=== PATIENT | female | born 1975 | race American Indian/Alaskan Native ===

== ENCOUNTER 2017-03-27 15:06 | Emergency (ER) | payer MEDICAID ==
[2017-03-27 17:32] VITALS: BP 135/75
--- NOTE | 2017-03-27 17:32 | EDM.PDOC ---
ED HPI GENERAL MEDICAL PROBLEM - General Chief Complaint: Lower Extremity Injury/Pain Stated Complaint: FELL AND HURT KNEE,[id number] Time Seen by Provider: 03/27/17 17:30 Source of Information: Reports: Patient History Limitations: Reports: No Limitations - History of Present Illness INITIAL COMMENTS - FREE TEXT/NARRATIVE: 42 yo [place] Female c/o falling onto Right Knee yesterday with friend Onset: Today Onset Date: 03/26/17 Onset Time: 13:00 Duration: Day(s): Location: Reports: Lower Extremity, Right Quality: Reports: Ache Severity: Moderate Improves with: Reports: Rest Worsens with: Reports: Movement Context: Reports: Trauma Associated Symptoms: Reports: No Other Symptoms Right Knee Pain Score (Numeric/FACES): 8 - Related Data Allergies Allergy/AdvReac Type Severity Reaction Status Date / Time No Known Allergies Allergy Verified 03/27/17 17:31 Home Meds: Home Meds . [No Known Home Meds] 10/22/15 [History] Past Medical History - Past Health History Medical/Surgical History: Denies Medical/Surgical History Genitourinary History: Reports: UTI, Recurrent Social & Family History - Family History Cardiac: Reports: CAD, Heart Failure, High Cholesterol, Hypertension, CT Respiratory: Reports: Asthma, COPD GI: Reports: Cholelithiasis Endocrine/Metabolic: Reports: Diabetes, type II, Obesity/MBI 30+ - Tobacco Use Smoking Status *Q: Current Every Day Smoker Years of Tobacco use: 24 Packs/Tins Daily: 1 Used Tobacco, but Quit: No Second Hand Smoke Exposure: Yes - Caffeine Use Caffeine Use: Reports: Coffee, Soda - Alcohol Use Days Per Week of Alcohol Use: 0 - Recreational Drug Use Recreational Drug Use: No Drug Use in Last 12 Months: Yes Recreational Drug Type: Reports: Marijuana/Hashish Recreational Drug Use Frequency: Not Used In Over 1 Month - Living Situation & Occupation Living situation: Reports: with Family Review of Systems - Review of Systems Review Of Systems: See Below Constitutional: Reports: No Symptoms Eyes: Reports: No Symptoms Ears: Reports: No Symptoms Nose: Reports: No Symptoms Mouth/Throat: Reports: No Symptoms Respiratory: Reports: No Symptoms Cardiovascular: Reports: No Symptoms GI/Abdominal: Reports: No Symptoms Genitourinary: Reports: No Symptoms Musculoskeletal: Reports: Joint Pain (right knee) Neurological: Reports: No Symptoms Psychiatric: Reports: No Symptoms ED EXAM, GENERAL - Physical Exam Exam: See Below Exam Limited By: No Limitations General Appearance: Alert, WD/WN, No Apparent Distress Eye Exam: Bilateral Eye: EOMI Respiratory/Chest: No Respiratory Distress Cardiovascular: Normal Peripheral Pulses Peripheral Pulses: 2+: Popliteal (L), Popliteal (R) Extremities: Limited Range of Motion (right knee w/o swelling and no discoloration) Neurological: Alert, Oriented, CN II-XII Intact, Normal Cognition Psychiatric: Normal Affect, Normal Mood Skin Exam: Warm, Dry, Intact Lymphatic: No Adenopathy Course - Vital Signs Last Recorded V/S: Last Vital Signs Temp 36.6 C 03/27/17 17:28 Pulse 63 03/27/17 17:28 Resp 16 03/27/17 17:28 BP 135/75 03/27/17 17:28 Pulse Ox 99 03/27/17 17:28 - Orders/Labs/Meds Orders: Active Orders 24 hr Category Date Time Status Knee 1V or 2V Rt [CR] Urgent Exams 03/27/17 16:06 Taken Departure - Departure Time of Disposition: 18:03 Disposition: Home, Self-Care 01 Condition: Good Clinical Impression: Contusion of knee, right Qualifiers: Encounter type: initial encounter Qualified Code(s): S80.01XA - Contusion of right knee, initial encounter - Discharge Information Forms: ED Department Discharge Additional Instructions: Rest Elevate and Apply Ice Pack TID X 15mins. Take the IBUPROFEN 800mg TID w/ food for the pain and inflammation #30 Use the crutches as advised F/U w/ PCP - My Orders Last 24 Hours: My Active Orders 03/27/17 16:06 Knee 1V or 2V Rt [CR] Urgent - Assessment/Plan Last 24 Hours: My Active Orders 03/27/17 16:06 Knee 1V or 2V Rt [CR] Urgent
[2017-03-27] MEDS ORDERED: Ibuprofen 800 MG Tab PO ONE (18:01)
== END 2017-03-27 18:19 | disposition home or self-care (01) ==
LOC: DL.ED 15:06
DX: S80.01XA Contusion of right knee, initial encounter (principal); Z87.440 Personal history of urinary (tract) infections; F17.210 Nicotine dependence, cigarettes, uncomplicated; W19.XXXA Unspecified fall, initial encounter
CPT/HCPCS: 73560; 99283; A9270

== ENCOUNTER 2017-08-10 14:21 | Emergency (ER) | payer MEDICAID ==
[2017-08-10] MEDS ORDERED: Sodium Chloride 0.9% 10 ML Syringe FLUSH PRN (14:52)
[2017-08-10 15:16] LABS: ANION GAP 12.3; CHLORIDE,CL 103 mmol/L (101-111); SODIUM,NA 137 mmol/L (135-145)
[2017-08-10] MEDS ORDERED: Diltiazem 25 MG/5 ML SDV IVPUSH ONE (15:17)
[2017-08-10] MEDS ORDERED: LORazepam 2 MG/ML Syringe IVPUSH ONE (15:18)
--- NOTE | 2017-08-10 15:42 | EDM.PDOC ---
ED HPI GENERAL MEDICAL PROBLEM - General Chief Complaint: Cardiovascular Problem Stated Complaint: FROM CLINIC Time Seen by Provider: 08/10/17 14:40 Source of Information: Reports: Patient, RN, RN Notes Reviewed History Limitations: Reports: No Limitations - History of Present Illness INITIAL COMMENTS - FREE TEXT/NARRATIVE: Pt presents to the ER from [facility], sent by Dr. Figueroa. Pt was being seen for c/o non-productive cough, chest pain, and body aches. She states she and her kids have not been feeling well and wanted to be tested for influenza A. She was found to have a tachy irregular rhythm. When an EKG was done she was found to be in new onset Atrial fib/RVR at a rate of 150's. Onset: Gradual Right Upper Chest Pain Score (Numeric/FACES): 6 - Related Data Allergies Allergy/AdvReac Type Severity Reaction Status Date / Time No Known Allergies Allergy Verified 03/27/17 17:31 Home Meds: Home Meds . 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 (See Below) Other OB/BYN History: Menses ended 4 days ago Musculoskeletal History: Reports: None Neurological History: Reports: None Psychiatric History: Reports: None Endocrine/Metabolic History: Reports: None Hematologic History: Reports: None Immunologic History: Reports: None Oncologic (Cancer) History: Reports: None Dermatologic History: Reports: None - Infectious Disease History Infectious Disease History: Reports: Chicken Pox - Past Surgical History Head Surgeries/Procedures: Reports: None Social & Family History - Family History Cardiac: Reports: CAD, Heart Failure, High Cholesterol, Hypertension, [place] Respiratory: Reports: Asthma, COPD GI: Reports: Cholelithiasis Endocrine/Metabolic: Reports: Diabetes, type II, Obesity/MBI 30+ - Tobacco Use Smoking Status *Q: Current Every Day Smoker Years of Tobacco use: 25 Packs/Tins Daily: 0.7 Used Tobacco, but Quit: No Second Hand Smoke Exposure: Yes - Caffeine Use Caffeine Use: Reports: Coffee - Alcohol Use Days Per Week of Alcohol Use: 0 - Recreational Drug Use Recreational Drug Use: Yes Drug Use in Last 12 Months: Yes Recreational Drug Type: Reports: Marijuana/Hashish Recreational Drug Use Frequency: Not Used In Over 1 Month - Living Situation & Occupation Living situation: Reports: with Family ED ROS GENERAL - Review of Systems Review Of Systems: ROS reveals no pertinent complaints other than HPI. ED EXAM, GENERAL - Physical Exam Exam: See Below Exam Limited By: No Limitations General Appearance: Alert, WD/WN, Anxious (PT anxious and crying) Eye Exam: Bilateral Eye: EOMI, Normal Inspection, PERRL Ears: Normal External Exam, Normal Canal, Hearing Grossly Normal, Normal TMs Nose: Normal Inspection, Normal Mucosa, No Blood Throat/Mouth: Normal Inspection, Normal Lips, Normal Teeth, Normal Gums, Normal Oropharynx, Normal Voice, No Airway Compromise Head: Atraumatic, Normocephalic Neck: Normal Inspection, Supple, Non-Tender, Full Range of Motion Respiratory/Chest: No Respiratory Distress, Lungs Clear, Normal Breath Sounds, No Accessory Muscle Use, Chest Non-Tender Cardiovascular: Normal Peripheral Pulses, No Edema, Tachycardia, Irregularly Irregular Peripheral Pulses: 1+: Radial (L), Radial (R) GI/Abdominal: Normal Bowel Sounds, Soft, Non-Tender, No Organomegaly, No Distention, No Abnormal Bruit, No Mass (Female) Exam: Deferred Rectal (Female) Exam: Deferred Back Exam: Normal Inspection, Full Range of Motion, NT Extremities: Normal Inspection, Normal Range of Motion, Non-Tender, Normal Capillary Refill, No Pedal Edema Neurological: Alert, Oriented, CN II-XII Intact, Normal Cognition, Normal Gait, Normal Reflexes, No Motor/Sensory Deficits Psychiatric: Anxious, Tearful Skin Exam: Warm, Dry, Intact, Normal Color, No Rash Lymphatic: No Adenopathy EKG INTERPRETATION EKG Date: 08/10/17 Time: 14:47 Rate (Beats/Min): 140 EKG Interpretation Comments: Atrial fibrillation, V-rate 99-172. Nonspecific repolarization abnormality, diffuse leads. Course - Vital Signs Last Recorded V/S: Last Vital Signs Temp 98.4 F 08/10/17 14:26 Pulse 116 H 08/10/17 16:35 Resp 22 H 08/10/17 14:26 BP 132/97 H 08/10/17 16:35 Pulse Ox 96 08/10/17 14:26 - Orders/Labs/Meds Labs: Laboratory Tests 08/10/17 08/10/17 08/10/17 Range/Units 14:40 14:40 14:40 WBC 12.6 H (5.0-10.0) 10^3/uL RBC 4.68 (4.2-5.4) 10^6/uL Hgb 14.0 (12.0-16.0) g/dL Hct 41.5 (37.0-47.0) % MCV 88.7 (80-100) fL MCH 29.9 (27.0-34.0) pg MCHC 33.7 (33.0-35.0) g/dL Plt Count 309 (150-450) 10^3/uL Neut % (Auto) 76.1 H (42.2-75.2) % Lymph % (Auto) 16.4 L (20.5-50.1) % Sebastian % (Auto) 6.7 (2-8) % Eos % (Auto) 0.6 L (1.0-3.0) % Baso % (Auto) 0.2 (0.0-1.0) % PT 9.1 (9.0-12.0) SEC INR 0.9 (0.9-1.2) Sodium 137 (135-145) mmol/L Potassium 3.3 L (3.6-5.0) mmol/L Chloride 103 (101-111) mmol/L Carbon Dioxide 25.0 (21.0-31.0) mmol/L Anion Gap 12.3 BUN 13 (7-18) mg/dL Creatinine 0.6 (0.6-1.3) mg/dL Est Cr Clr Drug Dosing 119.99 mL/min Estimated GFR (MDRD) > 60 BUN/Creatinine Ratio 21.66 Glucose 122 H (74-105) mg/dL Calcium 9.1 (8.4-10.2) mg/dl Total Bilirubin 1.7 H (0.2-1.0) mg/dL AST 28 (10-42) IU/L ALT 19 (10-60) IU/L Alkaline Phosphatase 113 (42-121) IU/L Troponin I < 0.02 (0.00-0.02) ng/ml Total Protein 7.2 (6.7-8.2) g/dl Albumin 4.3 (3.2-5.5) g/dl Globulin 2.9 Albumin/Globulin Ratio 1.48 Urine Color (YELLOW) Urine Appearance (CLEAR) Urine pH (5.0-9.0) Ur Specific Hudson (1.005-1.030) Urine Protein (NEGATIVE) Urine Glucose (UA) (NEGATIVE) Urine Ketones (NEGATIVE) Urine Occult Blood (NEGATIVE) Urine Nitrite (NEGATIVE) Urine Bilirubin (NEGATIVE) Urine Urobilinogen (0.2-1.0) mg/dL Ur Leukocyte Esterase (NEGATIVE) Urine RBC /HPF Urine WBC (0-5/HPF) /HPF Ur Epithelial Cells /HPF Urine Bacteria (0-FEW/HPF) /HPF Urine Mucus /LPF Urine HCG, Qual Urine Opiates Screen (NEGATIVE) Ur Oxycodone Screen (NEGATIVE) Urine Methadone Screen (NEGATIVE) Ur Barbiturates Screen (NEGATIVE) U Tricyclic Antidepress (NEGATIVE) Ur Phencyclidine Scrn (NEGATIVE) Ur Amphetamine Screen (NEGATIVE) U Methamphetamines Scrn (NEGATIVE) Urine MDMA Screen (NEGATIVE) U Benzodiazepines Scrn (NEGATIVE) Urine Cocaine Screen (NEGATIVE) U Marijuana (THC) Screen (NEGATIVE) Ethyl Alcohol < 5 mg/dL 08/10/17 08/10/17 08/10/17 Range/Units 15:50 15:50 15:50 WBC (5.0-10.0) 10^3/uL RBC (4.2-5.4) 10^6/uL Hgb (12.0-16.0) g/dL Hct (37.0-47.0) % MCV (80-100) fL MCH (27.0-34.0) pg MCHC (33.0-35.0) g/dL Plt Count (150-450) 10^3/uL Neut % (Auto) (42.2-75.2) % Lymph % (Auto) (20.5-50.1) % Sebastian % (Auto) (2-8) % Eos % (Auto) (1.0-3.0) % Baso % (Auto) (0.0-1.0) % PT (9.0-12.0) SEC INR (0.9-1.2) Sodium (135-145) mmol/L Potassium (3.6-5.0) mmol/L Chloride (101-111) mmol/L Carbon Dioxide (21.0-31.0) mmol/L Anion Gap BUN (7-18) mg/dL Creatinine (0.6-1.3) mg/dL Est Cr Clr Drug Dosing mL/min Estimated GFR (MDRD) BUN/Creatinine Ratio Glucose (74-105) mg/dL Calcium (8.4-10.2) mg/dl Total Bilirubin (0.2-1.0) mg/dL AST (10-42) IU/L ALT (10-60) IU/L Alkaline Phosphatase (42-121) IU/L Troponin I (0.00-0.02) ng/ml Total Protein (6.7-8.2) g/dl Albumin (3.2-5.5) g/dl Globulin Albumin/Globulin Ratio Urine Color Light yellow (YELLOW) Urine Appearance Slightly cloudy (CLEAR) Urine pH 7.5 (5.0-9.0) Ur Specific Hudson 1.015 (1.005-1.030) Urine Protein Negative (NEGATIVE) Urine Glucose (UA) Negative (NEGATIVE) Urine Ketones Negative (NEGATIVE) Urine Occult Blood Moderate H (NEGATIVE) Urine Nitrite Negative (NEGATIVE) Urine Bilirubin Negative (NEGATIVE) Urine Urobilinogen 0.2 (0.2-1.0) mg/dL Ur Leukocyte Esterase Negative (NEGATIVE) Urine RBC 10-20 H /HPF Urine WBC 0-5 (0-5/HPF) /HPF Ur Epithelial Cells Few /HPF Urine Bacteria Rare (0-FEW/HPF) /HPF Urine Mucus Few H /LPF Urine HCG, Qual Negative Urine Opiates Screen Negative (NEGATIVE) Ur Oxycodone Screen Negative (NEGATIVE) Urine Methadone Screen Negative (NEGATIVE) Ur Barbiturates Screen Negative (NEGATIVE) U Tricyclic Antidepress Negative (NEGATIVE) Ur Phencyclidine Scrn Negative (NEGATIVE) Ur Amphetamine Screen Negative (NEGATIVE) U Methamphetamines Scrn Negative (NEGATIVE) Urine MDMA Screen Negative (NEGATIVE) U Benzodiazepines Scrn Negative (NEGATIVE) Urine Cocaine Screen Negative (NEGATIVE) U Marijuana (THC) Screen Positive H (NEGATIVE) Ethyl Alcohol mg/dL Meds: Medications Discontinued Medications Generic Name Dose Route Start Last Admin Trade Name Freq PRN Reason Stop Dose Admin Diltiazem HCl 20 mg 08/10/17 15:17 08/10/17 15:31 Diltiazem IVPUSH 08/10/17 15:18 20 mg ONETIME ONE Administration Diltiazem HCl 100 mg/ Sodium 100 mls @ 5 mls/hr 08/10/17 16:30 08/10/17 16:35 Chloride IV 5 mg/hr TITRATE MANOJ 5 mls/hr Protocol Administration 5 MG/HR Lorazepam 1 mg 08/10/17 15:18 08/10/17 15:31 Ativan IVPUSH 08/10/17 15:19 1 mg ONETIME ONE Administration Sodium Chloride 10 ml 08/10/17 14:52 08/10/17 15:42 Saline Flush FLUSH 10 ml ASDIRECTED PRN Administration Keep Vein Open - Radiology Interpretation Free Text/Narrative:: Chest xray done at [facility]. No acute findings See rad report from [facility] in the chart Departure - Departure Time of Disposition: 16:44 Disposition: DC/Tfer to Acute Hospital 02 Reason for Transfer *Q: Primary PCI Indicated Condition: Fair Clinical Impression: Atrial fibrillation, new onset, Atrial fibrillation with RVR Referrals: Alysia Mora MD [Primary Care Provider] - Forms: ED Department Discharge, Interfacility Transfer GAYLEALA
[2017-08-10] MEDS ORDERED: Diltiazem 100 MG in Sodium Chloride 0.9% 100 ML IV SCH (16:30)
[2017-08-10 16:38] VITALS: BP 132/97
--- NOTE | 2017-08-24 07:28 | EKG ---
08/10/2017- DARIO BAIG CHEL - EKG done on a 42-year-old female showing atrial fibrillation, heart rate of 140 beats per minute. T-wave changes noted in inferior leads. [facility] /[id number] MTDD
== END 2017-08-10 17:18 ==
LOC: DL.ED 14:21
DX: I48.91 Unspecified atrial fibrillation (principal); F17.210 Nicotine dependence, cigarettes, uncomplicated
CPT/HCPCS: 36415; 80053; 80305; 81001; 81025; 84484; 85025; 85610; 93005; 96365; 96375; 96376; 99285; G0480; J2060; J3490; J7050

== ENCOUNTER 2017-10-13 18:59 | Emergency (ER) | payer MEDICAID ==
[2017-10-13] MEDS ORDERED: MVI, Adult with Vitamin K 10 ML, Folic Acid 1 MG, Thiamine 100 MG in Lactated Ringers 1... IV ONE ×4 (19:31)
[2017-10-13] MEDS ORDERED: Aspirin 81 MG Tab.Chew PO ONE (19:38)
--- NOTE | 2017-10-13 19:38 | EDM.PDOC ---
ED HPI GENERAL MEDICAL PROBLEM - General Chief Complaint: Chest Pain Stated Complaint: [id number] HEART BEATING TOÑA HAD ATRILFIB BEFORE Time Seen by Provider: 10/13/17 19:15 Source of Information: Reports: Patient, Old Records, RN, RN Notes Reviewed History Limitations: Reports: No Limitations - History of Present Illness INITIAL COMMENTS - FREE TEXT/NARRATIVE: Binta is a 42 yo F who presents to the ED due to palpitations for the last couple hours. She reports that she has been drinking for the last 2 days. Woke up this am and noticed that she "was having funny heart beats" She admits to drinking vodka and beer. Unsure how much she had drank but relates "was quite a bit" She reports that she drank a couple hours ago as she felt that she was "having a bad hangover" and thought that it would help her palpitations. She reports that she has been nauseated. No emesis. She reports that she was recently diagnosed with afib in July was started on Metoprolol, but was stopped in early August due to her "heart rate going to low" She was previously on aspirin 325mg but has missed the last 2 doses due to her drinking. Onset: Today Duration: Hour(s): (Patient reports sx started a couple hours unsure of the exact time. ) Location: Reports: Chest Quality: Reports: Pressure Severity: Mild Improves with: Reports: Rest Worsens with: Reports: Movement Associated Symptoms: Reports: Nausea/Vomiting, Weakness Treatments HEATING AND REFRIGERATION INSPECTOR: Reports: EKG, IV/IO, Other (see below) Other Treatments HEATING AND REFRIGERATION INSPECTOR: labs - Related Data Allergies Allergy/AdvReac Type Severity Reaction Status Date / Time No Known Allergies Allergy Verified 10/13/17 19:17 Home Meds: Home Meds Aspirin 325 mg PO DAILY 10/13/17 [History] Past Medical History - Past Health History Medical/Surgical History: Denies Medical/Surgical History HEENT History: Reports: None Cardiovascular History: Reports: Afib Respiratory History: Reports: None Gastrointestinal History: Reports: GERD Genitourinary History: Reports: UTI, Recurrent MISSION COMMANDER History: Reports: None Other OB/BYN History: \\ Musculoskeletal History: Reports: None Neurological History: Reports: None Psychiatric History: Reports: Anxiety, Depression, PTSD Endocrine/Metabolic History: Reports: None Hematologic History: Reports: None Immunologic History: Reports: None Oncologic (Cancer) History: Reports: None Dermatologic History: Reports: None - Infectious Disease History Infectious Disease History: Reports: Chicken Pox - Past Surgical History Head Surgeries/Procedures: Reports: None Social & Family History - Family History Family Medical History: Noncontributory Cardiac: Reports: CAD, Heart Failure, High Cholesterol, Hypertension, [place] Respiratory: Reports: Asthma, COPD GI: Reports: Cholelithiasis Endocrine/Metabolic: Reports: Diabetes, type II, Obesity/MBI 30+ - Tobacco Use Smoking Status *Q: Current Every Day Smoker Years of Tobacco use: 20 Packs/Tins Daily: 0.5 Used Tobacco, but Quit: No Second Hand Smoke Exposure: Yes - Caffeine Use Caffeine Use: Reports: Soda - Alcohol Use Days Per Week of Alcohol Use: 2 Number of Drinks Per Day: 6 Total Drinks Per Week: 12 - Recreational Drug Use Recreational Drug Use: Yes Drug Use in Last 12 Months: Yes Recreational Drug Type: Reports: Marijuana/Hashish Recreational Drug Use Frequency: Not Used In Over 1 Month - Living Situation & Occupation Living situation: Reports: with Family ED ROS GENERAL - Review of Systems Review Of Systems: ROS reveals no pertinent complaints other than HPI. ED EXAM, GENERAL - Physical Exam Exam: See Below Exam Limited By: No Limitations General Appearance: Alert, WD/WN, No Apparent Distress Eye Exam: Bilateral Eye: PERRL Ears: Normal External Exam, Normal Canal, Hearing Grossly Normal, Normal TMs Ear Exam: Bilateral Ear: Auricle Normal, Canal Normal, TM normal Nose: Normal Inspection, Normal Mucosa, No Blood Throat/Mouth: Normal Inspection, Normal Lips, Normal Teeth, Normal Gums, Normal Oropharynx, Normal Voice, No Airway Compromise Head: Atraumatic, Normocephalic Neck: Normal Inspection, Supple, Non-Tender, Full Range of Motion Respiratory/Chest: No Respiratory Distress, Lungs Clear, Normal Breath Sounds, No Accessory Muscle Use, Chest Non-Tender Cardiovascular: Normal Peripheral Pulses, Irregularly Irregular (Afib noted. ) GI/Abdominal: Normal Bowel Sounds, Soft, Non-Tender, No Organomegaly, No Distention, No Abnormal Bruit, No Mass (Female) Exam: Deferred Rectal (Female) Exam: Deferred Back Exam: Normal Inspection, Full Range of Motion, NT Extremities: Normal Inspection, Normal Range of Motion, Non-Tender, Normal Capillary Refill, No Pedal Edema Neurological: Alert, Oriented, CN II-XII Intact, Normal Cognition, Normal Gait, Normal Reflexes, No Motor/Sensory Deficits Psychiatric: Normal Affect, Normal Mood Skin Exam: Warm, Dry, Intact, Normal Color, No Rash Lymphatic: No Adenopathy EKG INTERPRETATION EKG Date: 10/13/17 Time: 19:17 Rhythm: A-Fib Rate (Beats/Min): 113 Comparison: No Change (Prior ekg showed Afib rate in the 150s) Course - Vital Signs Last Recorded V/S: Last Vital Signs Temp 97.8 F 10/13/17 19:07 Pulse 123 H 10/13/17 21:37 Resp 19 10/13/17 21:37 BP 130/64 10/13/17 21:37 Pulse Ox 99 10/13/17 21:37 - Orders/Labs/Meds Orders: Active Orders 24 hr Category Date Time Status EKG Documentation Completion [RC] URGENT Care 10/13/17 19:31 Active DRUG SCREEN URINE BIORAD [URCHEM] Stat Lab 10/13/17 20:25 Ordered HCG QUALITATIVE,URINE [URCHEM] Stat Lab 10/13/17 20:25 Ordered Potassium Chloride [KCl 10 MEQ in Water 100 ML] 10 meq Med 10/13/17 21:24 Active Premix Bag 1 bag IV ONETIME Medication Orders Potassium Chloride 10 meq/ (Premix) 100 mls @ 100 mls/hr IV ONETIME ONE Stop: 10/13/17 22:23 Last Admin: 10/13/17 21:32 Dose: 100 mls/hr Labs: Laboratory Tests 10/13/17 10/13/17 10/13/17 Range/Units 17:13 17:13 20:25 WBC 12.3 H (5.0-10.0) 10^3/uL RBC 4.50 (4.2-5.4) 10^6/uL Hgb 13.5 (12.0-16.0) g/dL Hct 39.1 (37.0-47.0) % MCV 86.9 (80-100) fL MCH 30.0 (27.0-34.0) pg MCHC 34.5 (33.0-35.0) g/dL Plt Count 273 (150-450) 10^3/uL Neut % (Auto) 64.2 (42.2-75.2) % Lymph % (Auto) 28.8 (20.5-50.1) % [place] % (Auto) 5.1 (2-8) % Eos % (Auto) 1.7 (1.0-3.0) % Baso % (Auto) 0.2 (0.0-1.0) % Sodium 136 (135-145) mmol/L Potassium 3.2 L (3.6-5.0) mmol/L Chloride 107 (101-111) mmol/L Carbon Dioxide 22.0 (21.0-31.0) mmol/L Anion Gap 10.2 BUN 11 (7-18) mg/dL Creatinine 0.5 L (0.6-1.3) mg/dL Est Cr Clr Drug Dosing 143.99 mL/min Estimated GFR (MDRD) > 60 BUN/Creatinine Ratio 22.00 Glucose 105 (74-105) mg/dL Calcium 8.5 (8.4-10.2) mg/dl Total Bilirubin 0.9 (0.2-1.0) mg/dL AST 25 (10-42) IU/L ALT 18 (10-60) IU/L Alkaline Phosphatase 97 (42-121) IU/L Troponin I < 0.02 (0.00-0.02) ng/ml Total Protein 7.5 (6.7-8.2) g/dl Albumin 4.3 (3.2-5.5) g/dl Globulin 3.2 Albumin/Globulin Ratio 1.34 Urine Color Yellow (YELLOW) Urine Appearance Clear (CLEAR) Urine pH 7.0 (5.0-9.0) Ur Specific [place] 1.010 (1.005-1.030) Urine Protein Negative (NEGATIVE) Urine Glucose (UA) Negative (NEGATIVE) Urine Ketones Negative (NEGATIVE) Urine Occult Blood Moderate H (NEGATIVE) Urine Nitrite Negative (NEGATIVE) Urine Bilirubin Negative (NEGATIVE) Urine Urobilinogen 0.2 (0.2-1.0) mg/dL Ur Leukocyte Esterase Negative (NEGATIVE) Urine RBC 0-5 /HPF Urine WBC 0-5 (0-5/HPF) /HPF Ur Epithelial Cells Moderate H /HPF Amorphous Sediment Few (0/HPF) /HPF Urine Bacteria Few (0-FEW/HPF) /HPF Urine HCG, Qual Urine Opiates Screen (NEGATIVE) Ur Oxycodone Screen (NEGATIVE) Urine Methadone Screen (NEGATIVE) Ur Barbiturates Screen (NEGATIVE) U Tricyclic Antidepress (NEGATIVE) Ur Phencyclidine Scrn (NEGATIVE) Ur Amphetamine Screen (NEGATIVE) U Methamphetamines Scrn (NEGATIVE) Urine MDMA Screen (NEGATIVE) U Benzodiazepines Scrn (NEGATIVE) Urine Cocaine Screen (NEGATIVE) U Marijuana (THC) Screen (NEGATIVE) Ethyl Alcohol < 5 mg/dL 10/13/17 10/13/17 Range/Units 20:25 20:25 WBC (5.0-10.0) 10^3/uL RBC (4.2-5.4) 10^6/uL Hgb (12.0-16.0) g/dL Hct (37.0-47.0) % MCV (80-100) fL MCH (27.0-34.0) pg MCHC (33.0-35.0) g/dL Plt Count (150-450) 10^3/uL Neut % (Auto) (42.2-75.2) % Lymph % (Auto) (20.5-50.1) % [place] % (Auto) (2-8) % Eos % (Auto) (1.0-3.0) % Baso % (Auto) (0.0-1.0) % Sodium (135-145) mmol/L Potassium (3.6-5.0) mmol/L Chloride (101-111) mmol/L Carbon Dioxide (21.0-31.0) mmol/L Anion Gap BUN (7-18) mg/dL Creatinine (0.6-1.3) mg/dL Est Cr Clr Drug Dosing mL/min Estimated GFR (MDRD) BUN/Creatinine Ratio Glucose (74-105) mg/dL Calcium (8.4-10.2) mg/dl Total Bilirubin (0.2-1.0) mg/dL AST (10-42) IU/L ALT (10-60) IU/L Alkaline Phosphatase (42-121) IU/L Troponin I (0.00-0.02) ng/ml Total Protein (6.7-8.2) g/dl Albumin (3.2-5.5) g/dl Globulin Albumin/Globulin Ratio Urine Color (YELLOW) Urine Appearance (CLEAR) Urine pH (5.0-9.0) Ur Specific [place] (1.005-1.030) Urine Protein (NEGATIVE) Urine Glucose (UA) (NEGATIVE) Urine Ketones (NEGATIVE) Urine Occult Blood (NEGATIVE) Urine Nitrite (NEGATIVE) Urine Bilirubin (NEGATIVE) Urine Urobilinogen (0.2-1.0) mg/dL Ur Leukocyte Esterase (NEGATIVE) Urine RBC /HPF Urine WBC (0-5/HPF) /HPF Ur Epithelial Cells /HPF Amorphous Sediment (0/HPF) /HPF Urine Bacteria (0-FEW/HPF) /HPF Urine HCG, Qual Negative Urine Opiates Screen Negative (NEGATIVE) Ur Oxycodone Screen Negative (NEGATIVE) Urine Methadone Screen Negative (NEGATIVE) Ur Barbiturates Screen Negative (NEGATIVE) U Tricyclic Antidepress Negative (NEGATIVE) Ur Phencyclidine Scrn Negative (NEGATIVE) Ur Amphetamine Screen Negative (NEGATIVE) U Methamphetamines Scrn Negative (NEGATIVE) Urine MDMA Screen Negative (NEGATIVE) U Benzodiazepines Scrn Negative (NEGATIVE) Urine Cocaine Screen Negative (NEGATIVE) U Marijuana (THC) Screen Positive H (NEGATIVE) Ethyl Alcohol mg/dL Meds: Medications Generic Name Dose Route Start Last Admin Trade Name Freq PRN Reason Stop Dose Admin Potassium Chloride 10 meq/ 100 mls @ 100 mls/hr 10/13/17 21:24 10/13/17 21:32 Premix IV 10/13/17 22:23 100 mls/hr ONETIME ONE Administration Discontinued Medications Generic Name Dose Route Start Last Admin Trade Name Freq PRN Reason Stop Dose Admin Aspirin 324 mg 10/13/17 19:38 10/13/17 20:27 Aspirin PO 10/13/17 19:39 324 mg ONETIME ONE Administration Multivitamins/Minerals 10 ml/ 1,011.2 mls @ 999 mls/hr 10/13/17 19:31 20:27 Folic Acid 1 mg/ Thiamine HCl IV 10/13/17 20:31 999 mls/hr 100 mg/ Lactated Ringer's ONETIME ONE Administration Metoprolol Tartrate 25 mg 10/13/17 21:26 10/13/17 21:35 Lopressor PO 10/13/17 21:27 25 mg ONETIME ONE Administration - Radiology Interpretation Free Text/Narrative:: Patient relates that she is feeling slightly better after banana bag. Heart ranging from low 90s to 130s. Departure - Departure Time of Disposition: 22:22 Disposition: Home, Self-Care 01 Condition: Good Clinical Impression: Atrial fibrillation Qualifiers: Atrial fibrillation type: paroxysmal Qualified Code(s): I48.0 - Paroxysmal atrial fibrillation Forms: ED Department Discharge Care Plan Goals: Follow-up with your primary care provider in the next couple days regarding your elevated heart rate. Please ask if your should be on any medications to control your heart rate. Push fluid. Avoid alcohol use Return to the clinic if you are experiencing shortness of breath, chest pain, or other concerns.
[2017-10-13 19:48] LABS: ANION GAP 10.2; CHLORIDE,CL 107 mmol/L (101-111); SODIUM,NA 136 mmol/L (135-145)
[2017-10-13] MEDS ORDERED: Potassium Chloride 10 MEQ in Premix Bag 1 BAG IV ONE (21:24)
[2017-10-13] MEDS ORDERED: Metoprolol Tartrate 25 MG Tab PO ONE (21:26)
[2017-10-13 22:32] VITALS: BP 121/66
--- NOTE | 2017-10-14 14:08 | EKG ---
10/13/2017- DARIO BAIG - FINDINGS: EKG, per my reading, shows atrial fibrillation with rapid ventricular rate around 110. MOD /[id number]
== END 2017-10-13 22:38 | disposition home or self-care (01) ==
LOC: DL.ED 18:59
DX: I48.0 Paroxysmal atrial fibrillation (principal); F17.210 Nicotine dependence, cigarettes, uncomplicated; Z79.82 Long term (current) use of aspirin
CPT/HCPCS: 36415; 80053; 80305; 81001; 81025; 84484; 85025; 93005; 96365; 96367; 99285; A9270; G0480; J3411; J3480; J7120; J3490

== ENCOUNTER 2019-11-16 00:38 | Emergency (ER) | payer MEDICAID ==
[2019-11-16 02:26] VITALS: BP 150/99; PULSE 72
[2019-11-16] MEDS ORDERED: Ondansetron 4 MG/2 ML SDV IVPUSH ONE (02:31)
[2019-11-16] MEDS ORDERED: Sodium Chloride 0.9% 1,000 ML IV ONE (02:31)
--- NOTE | 2019-11-16 02:36 | EDM.PDOC ---
ED HPI GENERAL MEDICAL PROBLEM - General Chief Complaint: Skin Complaint Stated Complaint: HURT KNEE, SICK Time Seen by Provider: 11/16/19 02:28 Source of Information: Reports: Patient History Limitations: Reports: No Limitations - History of Present Illness INITIAL COMMENTS - FREE TEXT/NARRATIVE: This 44 yo female patient reports to the ED with left lateral knee pain, redness and swelling that started on Thursday (11/12/19). The patient also reports she has been having bilateral side pain for the past week. The patient reports she has been very thirsty, but has not been able to eat due to some nausea. The patient reports she has tried some antibiotic cream on the leg one time. The patient has not attempted to be seen in the clinic for her current symptoms. The patient reports she has been drinking pedialyte, sprite and water , but continues to feel ill. Duration: Day(s): (5 days for the left knee pain), Week(s): (side pain ), Constant, Getting Worse Location: Reports: Lower Extremity, Left Quality: Reports: Ache, Sharp, Stabbing Severity: Severe Improves with: Reports: None Worsens with: Reports: None Context: Reports: Other Associated Symptoms: Reports: Nausea/Vomiting Treatments SUBGRADE TESTER: Reports: Acetaminophen Left Leg Pain Score (Numeric/FACES): 7 - Related Data Allergies Allergy/AdvReac Type Severity Reaction Status Date / Time No Known Allergies Allergy Verified 11/16/19 02:18 Home Meds: Home Meds . [Unable to Verify Home Med List] 11/16/19 [History] Past Medical History - Past Health History Medical/Surgical History: Denies Medical/Surgical History HEENT History: Reports: None Cardiovascular History: Reports: Afib Respiratory History: Reports: None Gastrointestinal History: Reports: GERD Genitourinary History: Reports: UTI, Recurrent CORRECTION OFFICER History: Reports: None Other CORRECTION OFFICER History: \ Musculoskeletal History: Reports: None Neurological History: Reports: None Psychiatric History: Reports: Anxiety, Depression, PTSD Endocrine/Metabolic History: Reports: None Hematologic History: Reports: None Immunologic History: Reports: None Oncologic (Cancer) History: Reports: None Dermatologic History: Reports: None - Infectious Disease History Infectious Disease History: Reports: Chicken Pox - Past Surgical History Head Surgeries/Procedures: Reports: None Social & Family History - Family History Family Medical History: Noncontributory Cardiac: Reports: CAD, Heart Failure, High Cholesterol, Hypertension, [place] Respiratory: Reports: Asthma, COPD GI: Reports: Cholelithiasis Endocrine/Metabolic: Reports: Diabetes, type II, Obesity/MBI 30+ - Tobacco Use Smoking Status *Q: Current Every Day Smoker Years of Tobacco use: 30 Packs/Tins Daily: 0.5 - Caffeine Use Caffeine Use: Reports: Coffee - Recreational Drug Use Recreational Drug Use: Yes Recreational Drug Type: Reports: Marijuana/Hashish - Living Situation & Occupation Living situation: Reports: with Family ED ROS GENERAL - Review of Systems Review Of Systems: Comprehensive ROS is negative, except as noted in HPI. ED EXAM, SKIN/RASH Exam: See Below Exam Limited By: No Limitations General Appearance: Alert, WD/WN, Moderate Distress Eye Exam: Bilateral Eye: EOMI, Normal Inspection, PERRL Ears: Normal External Exam, Normal Canal, Hearing Grossly Normal, Normal TMs Nose: Normal Inspection, Normal Mucosa, No Blood Throat/Mouth: Normal Inspection, Normal Lips, Normal Teeth, Normal Gums, Normal Oropharynx, Normal Voice, No Airway Compromise Head: Atraumatic, Normocephalic Neck: Normal Inspection, Supple, Non-Tender, Full Range of Motion Respiratory/Chest: No Respiratory Distress, Lungs Clear, Normal Breath Sounds, No Accessory Muscle Use, Chest Non-Tender Cardiovascular: Normal Peripheral Pulses, Regular Rate, Rhythm, No Edema, No Gallop, No JVD, No Murmur, No Rub GI/Abdominal: Normal Bowel Sounds, Soft, Non-Tender, No Organomegaly, No Distention, No Abnormal Bruit, No Mass (Female) Exam: Deferred Rectal (Female) Exam: Deferred Back Exam: Normal Inspection, Full Range of Motion, NT Extremities: Leg Pain (left lateral knee (erythema)) Neurological: Alert, Oriented, CN II-XII Intact, Normal Cognition, Normal Gait, Normal Reflexes, No Motor/Sensory Deficits Psychiatric: Normal Affect, Normal Mood Skin: Warm, Dry, Wound/Incision (left lateral knee) Location, Skin: Lower Extremity, Left Characteristics: Erythematous Associated features: Warmth, Tenderness, Swelling, Inflammation Lymphatic: No Adenopathy Course - Vital Signs Last Recorded V/S: Last Vital Signs Temp 37.2 C 11/16/19 02:18 Pulse 72 11/16/19 02:18 Resp 20 11/16/19 02:18 BP 150/99 H 11/16/19 02:18 Pulse Ox 97 11/16/19 02:18 - Orders/Labs/Meds Orders: Active Orders 24 hr Category Date Time Status CULTURE BLOOD [BC] Stat Lab 11/16/19 02:38 Received CULTURE BLOOD [BC] Stat Lab 11/16/19 03:19 Received Labs: Laboratory Tests 11/16/19 11/16/19 11/16/19 Range/Units 02:27 02:27 02:38 WBC 15.6 H (5.0-10.0) 10^3/uL RBC 4.37 (4.2-5.4) 10^6/uL Hgb 12.9 (12.0-16.0) g/dL Hct 39.1 (37.0-47.0) % MCV 89.5 (80-100) fL MCH 29.5 (27.0-34.0) pg MCHC 33.0 (33.0-35.0) g/dL Plt Count 270 (150-450) 10^3/uL Neut % (Auto) 81.6 H (42.2-75.2) % Lymph % (Auto) 11.9 L (20.5-50.1) % [place] % (Auto) 5.3 (2-8) % Eos % (Auto) 1.1 (1.0-3.0) % Baso % (Auto) 0.1 (0.0-1.0) % Sodium (136-145) mmol/L Potassium (3.5-5.1) mmol/L Chloride (98-107) mmol/L Carbon Dioxide (21-32) mmol/L Anion Gap (7-13) mEq/L BUN (7-18) mg/dL Creatinine (0.55-1.02) mg/dL Est Cr Clr Drug Dosing mL/min Estimated GFR (MDRD) BUN/Creatinine Ratio (No establ ref range) Glucose (74-99) mg/dL Lactic Acid (0.4-2.0) mmol/L Calcium (8.5-10.1) mg/dL Total Bilirubin (0.2-1.0) mg/dL AST (15-37) U/L ALT (14-59) U/L Alkaline Phosphatase (46-116) U/L Total Protein (6.4-8.2) g/dL Albumin (3.4-5.0) g/dL Globulin Albumin/Globulin Ratio Urine Color Yellow (YELLOW) Urine Appearance Slightly cloudy (CLEAR) Urine pH 7.0 (5.0-9.0) Ur Specific [place] 1.015 (1.005-1.030) Urine Protein Negative (NEGATIVE) Urine Glucose (UA) Negative (NEGATIVE) Urine Ketones Negative (NEGATIVE) Urine Occult Blood Moderate H (NEGATIVE) Urine Nitrite Negative (NEGATIVE) Urine Bilirubin Negative (NEGATIVE) Urine Urobilinogen 0.2 (0.2-1.0) mg/dL Ur Leukocyte Esterase Negative (NEGATIVE) Urine RBC 20-30 H /HPF Urine WBC 0-5 (0-5/HPF) /HPF Ur Epithelial Cells Few (NOT SEEN) /HPF Amorphous Sediment Rare (NOT SEEN) /HPF Urine Bacteria Rare (0-FEW/HPF) /HPF Urine Mucus Rare (NOT SEEN) /LPF Urine Opiates Screen Negative (NEGATIVE) Ur Oxycodone Screen Negative (NEGATIVE) Urine Methadone Screen Negative (NEGATIVE) Ur Barbiturates Screen Negative (NEGATIVE) U Tricyclic Antidepress Negative (NEGATIVE) Ur Phencyclidine Scrn Negative (NEGATIVE) Ur Amphetamine Screen Negative (NEGATIVE) U Methamphetamines Scrn Negative (NEGATIVE) Urine MDMA Screen Negative (NEGATIVE) U Benzodiazepines Scrn Negative (NEGATIVE) Urine Cocaine Screen Negative (NEGATIVE) U Marijuana (THC) Screen Positive H (NEGATIVE) 11/16/19 11/16/19 Range/Units 02:38 02:38 WBC (5.0-10.0) 10^3/uL RBC (4.2-5.4) 10^6/uL Hgb (12.0-16.0) g/dL Hct (37.0-47.0) % MCV (80-100) fL MCH (27.0-34.0) pg MCHC (33.0-35.0) g/dL Plt Count (150-450) 10^3/uL Neut % (Auto) (42.2-75.2) % Lymph % (Auto) (20.5-50.1) % [place] % (Auto) (2-8) % Eos % (Auto) (1.0-3.0) % Baso % (Auto) (0.0-1.0) % Sodium 134 L (136-145) mmol/L Potassium 3.7 (3.5-5.1) mmol/L Chloride 100 (98-107) mmol/L Carbon Dioxide 28 (21-32) mmol/L Anion Gap 9.7 (7-13) mEq/L BUN 14 (7-18) mg/dL Creatinine 0.72 (0.55-1.02) mg/dL Est Cr Clr Drug Dosing 94.31 mL/min Estimated GFR (MDRD) > 60 BUN/Creatinine Ratio 19.4 (No establ ref range) Glucose 107 H (74-99) mg/dL Lactic Acid 0.8 (0.4-2.0) mmol/L Calcium 8.7 (8.5-10.1) mg/dL Total Bilirubin 0.3 (0.2-1.0) mg/dL AST 9 L (15-37) U/L ALT 18 (14-59) U/L Alkaline Phosphatase 123 H (46-116) U/L Total Protein 7.2 (6.4-8.2) g/dL Albumin 3.4 (3.4-5.0) g/dL Globulin 3.8 Albumin/Globulin Ratio 0.9 Urine Color (YELLOW) Urine Appearance (CLEAR) Urine pH (5.0-9.0) Ur Specific [place] (1.005-1.030) Urine Protein (NEGATIVE) Urine Glucose (UA) (NEGATIVE) Urine Ketones (NEGATIVE) Urine Occult Blood (NEGATIVE) Urine Nitrite (NEGATIVE) Urine Bilirubin (NEGATIVE) Urine Urobilinogen (0.2-1.0) mg/dL Ur Leukocyte Esterase (NEGATIVE) Urine RBC /HPF Urine WBC (0-5/HPF) /HPF Ur Epithelial Cells (NOT SEEN) /HPF Amorphous Sediment (NOT SEEN) /HPF Urine Bacteria (0-FEW/HPF) /HPF Urine Mucus (NOT SEEN) /LPF Urine Opiates Screen (NEGATIVE) Ur Oxycodone Screen (NEGATIVE) Urine Methadone Screen (NEGATIVE) Ur Barbiturates Screen (NEGATIVE) U Tricyclic Antidepress (NEGATIVE) Ur Phencyclidine Scrn (NEGATIVE) Ur Amphetamine Screen (NEGATIVE) U Methamphetamines Scrn (NEGATIVE) Urine MDMA Screen (NEGATIVE) U Benzodiazepines Scrn (NEGATIVE) Urine Cocaine Screen (NEGATIVE) U Marijuana (THC) Screen (NEGATIVE) Meds: Medications Discontinued Medications Generic Name Dose Route Start Last Admin Trade Name Freq PRN Reason Stop Dose Admin Sodium Chloride 1,000 mls @ 999 mls/hr 11/16/19 02:31 11/16/19 03:29 Normal Saline IV 11/16/19 03:31 100 mls/hr .BOLUS ONE Infusion Vancomycin HCl 1,500 mg/ 500 mls @ 333.333 mls/hr 11/16/19 03:17 11/16/19 03: 28 Sodium Chloride IV 11/16/19 04:46 333.333 mls/hr ONETIME ONE Administration Ondansetron HCl 4 mg 11/16/19 02:31 11/16/19 02:38 Zofran IVPUSH 11/16/19 02:32 4 mg ONETIME ONE Administration Departure - Departure Time of Disposition: 05:04 Disposition: Home, Self-Care 01 Condition: Fair Clinical Impression: Cellulitis Qualifiers: Site of cellulitis: extremity Site of cellulitis of extremity: lower extremity Laterality: left Qualified Code(s): L03.116 - Cellulitis of left lower limb - Discharge Information *PRESCRIPTION DRUG MONITORING PROGRAM REVIEWED*: Yes *COPY OF PRESCRIPTION DRUG MONITORING REPORT IN PATIENT IDA: Yes Instructions: Cellulitis, Adult, [id number] Forms: ED Department Discharge Care Plan Goals: The patient was advised of the examination and lab results during the visit. The patient was given IV Vancomycin while in the ED. The patient was discharged with a script for 1) Keflex (500 mg) #30 to take 1 by mouth 3 times per day for 10 days and Bactrim DS #20 to take 1 by mouth 2 times per day for 10 days. The patient should follow-up with her primary care facility for continued concerns. If the patient has any additional symptoms or concerns, the patient should either return to the emergency department or visit her primary care facility. Sepsis Event Note - Evaluation Sepsis Screening Result: No Definite Risk - Focused Exam Vital Signs: Vital Signs Temp Pulse Resp BP Pulse Ox 11/16/19 02:18 37.2 C 72 20 150/99 H 97 Date Exam was Performed: 11/16/19 Time Exam was Performed: 05:05 - My Orders Last 24 Hours: My Active Orders 11/16/19 02:38 CULTURE BLOOD [BC] Stat 11/16/19 03:19 CULTURE BLOOD [BC] Stat - Assessment/Plan Last 24 Hours: My Active Orders 11/16/19 02:38 CULTURE BLOOD [BC] Stat 11/16/19 03:19 CULTURE BLOOD [BC] Stat
[2019-11-16 03:03] LABS: ANION GAP 9.7 mEq/L (7-13); CHLORIDE,CL 100 mmol/L (98-107); SODIUM,NA 134 mmol/L (136-145)
== END 2019-11-16 05:11 | disposition home or self-care (01) ==
LOC: DL.ED 00:38
DX: L03.116 Cellulitis of left lower limb (principal); I48.91 Unspecified atrial fibrillation; F17.210 Nicotine dependence, cigarettes, uncomplicated
CPT/HCPCS: 36415; 80053; 80305; 81001; 83605; 85025; 87040; 96361; 96365; 96366; 96375; 99283; J2405; J3370; J7030; J7040

== ENCOUNTER 2020-07-15 09:10 | Emergency (ER) | payer MEDICAID ==
[2020-07-15 09:50] VITALS: BP 152/88; PULSE 55
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
[2020-07-15] MEDS ORDERED: Lidocaine 5% Oint 35.44 GM Tube TOP ONE (11:09)
[2020-07-15] MEDS ORDERED: Ibuprofen 800 MG Tab PO ONE (11:10)
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
== END 2020-07-15 11:25 | disposition home or self-care (01) ==
LOC: DL.ED 09:10
DX: S20.212A Contusion of left front wall of thorax, initial encounter (principal); I48.91 Unspecified atrial fibrillation; F17.210 Nicotine dependence, cigarettes, uncomplicated; W08.XXXA Fall from other furniture, initial encounter
CPT/HCPCS: 71101; 99283; A9270; 99282

== ENCOUNTER 2021-04-13 10:48 | Emergency (ER) | payer MEDICAID ==
[2021-04-13 12:56] VITALS: BP 153/86; PULSE 82
[2021-04-13] MEDS ORDERED: Sodium Chloride 0.9% 10 ML Syringe FLUSH PRN (13:05)
[2021-04-13] MEDS ORDERED: HYDROmorphone 1 MG/ML Syringe IVPUSH ONE (13:07)
[2021-04-13] MEDS ORDERED: Bacitracin Oint 1 GM U/D Packet TOP ONE (13:07)
[2021-04-13] MEDS ORDERED: Ondansetron 4 MG/2 ML SDV IV ONE (13:07)
[2021-04-13] MEDS ORDERED: Lidocaine 1% 30 ML SDV INJECT ONE (13:07)
--- NOTE | 2021-04-13 13:30 | EDM.PDOC ---
<Tala Riley - Last Filed: 04/13/21 14:55> ED HPI GENERAL MEDICAL PROBLEM - General Chief Complaint: Upper Extremity Injury/Pain Stated Complaint: INFECTED ARM Time Seen by Provider: 04/13/21 13:00 - History of Present Illness INITIAL COMMENTS - FREE TEXT/NARRATIVE: 46 y/o female presents with pain and swelling of right elbow. She had originally scraped her elbow three weeks ago and then two days ago she scrapped off the scab on her sheets reopening the wound. Overnight her elbow, upper arm, and forearm became swollen, erythematous, and tender to touch. There also is some puss oozing out of the wound. Patient expresses moderate pain rated a 7/10 over area and limited ROM at the elbow due to swelling and pain. Associated symptoms include fever and chills. - Related Data Allergies Allergy/AdvReac Type Severity Reaction Status Date / Time No Known Allergies Allergy Verified 04/13/21 12:49 Home Meds: Home Meds Acetaminophen [Tylenol] 650 mg PO Q4HR PRN 04/13/21 [History] Past Medical History - Past Health History Medical/Surgical History: Denies Medical/Surgical History HEENT History: Reports: None Cardiovascular History: Reports: Afib Respiratory History: Reports: None Gastrointestinal History: Reports: GERD Genitourinary History: Reports: UTI, Recurrent [employer] History: Reports: None Other [employer] History: \ Musculoskeletal History: Reports: None Neurological History: Reports: None Psychiatric History: Reports: Anxiety, Depression, PTSD Endocrine/Metabolic History: Reports: None Hematologic History: Reports: None Immunologic History: Reports: None Oncologic (Cancer) History: Reports: None Dermatologic History: Reports: None - Infectious Disease History Infectious Disease History: Reports: Chicken Pox - Past Surgical History Head Surgeries/Procedures: Reports: None Social & Family History - Family History Family Medical History: No Pertinent Family History Cardiac: Reports: CAD, Heart Failure, High Cholesterol, Hypertension, [place] Respiratory: Reports: Asthma, COPD GI: Reports: Cholelithiasis Endocrine/Metabolic: Reports: Diabetes, type II, Obesity/MBI 30+ - Tobacco Use Tobacco Use Status *Q: Current Every Day Tobacco User Years of Tobacco use: 30 Packs/Tins Daily: 0.5 - Caffeine Use Caffeine Use: Reports: Coffee - Recreational Drug Use Recreational Drug Use: Yes Recreational Drug Type: Reports: Marijuana/Hashish - Living Situation & Occupation Living situation: Reports: with Family Review of Systems - Review of Systems Constitutional: Reports: Chills, Fever Respiratory: Reports: No Symptoms Cardiovascular: Reports: No Symptoms GI/Abdominal: Reports: No Symptoms Genitourinary: Reports: No Symptoms Musculoskeletal: Reports: Other (Limited ROM of elbow) Neurological: Reports: No Symptoms Psychiatric: Reports: No Symptoms ED EXAM, GENERAL - Physical Exam Exam: See Below General Appearance: Anxious Respiratory/Chest: No Respiratory Distress, Lungs Clear, Normal Breath Sounds, No Accessory Muscle Use, Chest Non-Tender Cardiovascular: Normal Peripheral Pulses, Regular Rate, Rhythm, No Edema, No Gallop, No JVD, No Murmur, No Rub Extremities: Joint Swelling (1.5 cm superficial scrape with pus. Area around laceration is fluctuant, tender, warm, and erythmatous), Arm Pain, Limited Range of Motion, Increased Warmth, Redness Psychiatric: Anxious, Tearful Skin Exam: Warm, No Rash ED TRAUMA EXTREMITY PROCEDURES - I&D Site: Rigth elbow Skin Prep: Providone-Iodine (Betadine) Local Anesthesia: Lidocaine: 1% Plain Local Anesthetic Volume: Other (10 cc) Area Incised With: 11 Blade Drainage: Clear, Bloody Probed to Break Up Loculations: Yes Packed With: 1/4 in. Iodoform Sterile Dressing: Adhesive Dressing Complications: No Departure - Departure Disposition: Home, Self-Care 01 Condition: Good Clinical Impression: Cellulitis of right elbow - Discharge Information *PRESCRIPTION DRUG MONITORING PROGRAM REVIEWED*: Not Applicable *COPY OF PRESCRIPTION DRUG MONITORING REPORT IN PATIENT IDA: Not Applicable Instructions: Cellulitis, Adult Forms: ED Department Discharge Additional Instructions: Rx: Doxycycline Rx: Clindamycin Follow up with your primary clinic Thursday or Thursday, April 15 or for recheck. Return to ER if worse at any time. <Geraldo Potter - Last Filed: 04/13/21 16:04> Review of Systems - Review of Systems Review Of Systems: Comprehensive ROS is negative, except as noted in HPI. ED EXAM, GENERAL - Physical Exam Exam Limited By: No Limitations General Appearance: Alert, No Apparent Distress, Anxious Throat/Mouth: Normal Voice, No Airway Compromise Head: Atraumatic, Normocephalic Respiratory/Chest: No Respiratory Distress, Lungs Clear Cardiovascular: Normal Peripheral Pulses Extremities: Joint Swelling, Arm Pain, Limited Range of Motion, Increased Warmth, Redness Neurological: Alert, Oriented, No Motor/Sensory Deficits Psychiatric: Tearful Skin Exam: Warm, Dry, Intact Course - Vital Signs Last Recorded V/S: Last Vital Signs Temp 98.1 F 04/13/21 12:55 Pulse 82 04/13/21 12:55 Resp 20 04/13/21 12:55 BP 153/86 H 04/13/21 12:55 Pulse Ox 96 04/13/21 12:55 - Orders/Labs/Meds Orders: Active Orders 24 hr Category Date Time Status Peripheral IV Care [RC] . DIRECTED Care 04/13/21 13:06 Active CULTURE BLOOD [BC] Stat Lab 04/13/21 13:15 Received CULTURE BLOOD [BC] Stat Lab 04/13/21 13:20 Received CULTURE WOUND [RM] Stat Lab 04/13/21 13:05 Ordered Sodium Chloride 0.9% [Saline Flush] Med 04/13/21 13:05 Active 10 ml FLUSH ASDIRECTED PRN Blood Culture x2 Reflex Set [OM.PC] Stat Oth 04/13/21 13:04 Ordered Peripheral IV Insertion Adult [OM.PC] Stat Oth 04/13/21 13:05 Ordered Medication Orders Sodium Chloride (Sodium Chloride 0.9% 10 Ml Syringe) 10 ml FLUSH ASDIRECTED PRN PRN Reason: Keep Vein Open Last Admin: 04/13/21 13:46 Dose: 10 ml Documented by: MARCOS Labs: Laboratory Tests 04/13/21 04/13/21 04/13/21 Range/Units 13:15 13:15 13:15 WBC 11.7 H (5.0-10.0) 10^3/uL RBC 4.42 (4.2-5.4) 10^6/uL Hgb 12.9 (12.0-16.0) g/dL Hct 38.9 (37.0-47.0) % MCV 88.0 (80-100) fL MCH 29.2 (27.0-34.0) pg MCHC 33.2 (33.0-35.0) g/dL Plt Count 310 (150-450) 10^3/uL Neut % (Auto) 74.9 (42.2-75.2) % Lymph % (Auto) 16.4 L (20.5-50.1) % Mcdonald % (Auto) 7.9 (2-8) % Eos % (Auto) 0.5 L (1.0-3.0) % Baso % (Auto) 0.3 (0.0-1.0) % Sodium 139 (136-145) mmol/L Potassium 3.4 L (3.5-5.1) mmol/L Chloride 102 (98-107) mmol/L Carbon Dioxide 25 (21-32) mmol/L Anion Gap 15.4 H (7-13) mEq/L BUN 5 L (7-18) mg/dL Creatinine 0.61 (0.55-1.02) mg/dL Est Cr Clr Drug Dosing 109.03 mL/min Estimated GFR (MDRD) > 60 BUN/Creatinine Ratio 8.2 (No establ ref range) Glucose 97 (70-99) mg/dL Lactic Acid 1.0 (0.4-2.0) mmol/L Calcium 8.1 L (8.5-10.1) mg/dL Total Bilirubin 1.4 H (0.2-1.0) mg/dL AST 16 (15-37) U/L ALT 27 (14-59) U/L Alkaline Phosphatase 143 H (46-116) U/L C-Reactive Protein 4.2 H (0.0-0.9) mg/dL Total Protein 7.7 (6.4-8.2) g/dL Albumin 3.5 (3.4-5.0) g/dL Globulin 4.2 Albumin/Globulin Ratio 0.8 Meds: Medications Generic Name Dose Route Start Last Admin Trade Name Monica PRN Reason Stop Dose Admin Sodium Chloride 10 ml 04/13/21 13:05 04/13/21 13:46 Sodium Chloride 0.9% 10 Ml Syringe FLUSH 10 ml ASDIRECTED PRN Administration Keep Vein Open Discontinued Medications Generic Name Dose Route Start Last Admin Trade Name Monica PRN Reason Stop Dose Admin Bacitracin 1 dose 04/13/21 13:07 04/13/21 13:47 Bacitracin Oint 1 Gm U/D Packet TOP 04/13/21 13:08 1 dose ONETIME ONE Administration Hydromorphone HCl 1 mg 04/13/21 13:07 04/13/21 13:47 Hydromorphone 1 Mg/Ml Syringe IVPUSH 04/13/21 13:08 1 mg ONETIME ONE Administration Vancomycin HCl 1,500 mg/ 500 mls @ 333.333 mls/hr 04/13/21 13:08 04/13/21 14:18 Sodium Chloride IV 04/13/21 14:37 333.333 mls/hr ONETIME ONE Administration Lidocaine HCl 30 ml 04/13/21 13:07 04/13/21 13:46 Lidocaine 1% 30 Ml Sdv INJECT 04/13/21 13:08 30 ml ONETIME ONE Administration Lorazepam 2 mg 04/13/21 13:36 04/13/21 13:46 Lorazepam 2 Mg/Ml Sdv IVPUSH 04/13/21 13:37 2 mg ONETIME ONE Administration Ondansetron HCl 4 mg 04/13/21 13:07 04/13/21 13:46 Ondansetron 4 Mg/2 Ml Sdv IV 04/13/21 13:08 4 mg ONETIME ONE Administration - Re-Assessments/Exams Free Text/Narrative Re-Assessment/Exam: 04/13/21 I personally performed or re-performed the physical examination and medical decision making. I have verified all student documentation or findings, including history, physical exam and/or medical decision making. Departure - Departure Time of Disposition: 16:01 Condition: Good - Discharge Information *PRESCRIPTION DRUG MONITORING PROGRAM REVIEWED*: Not Applicable *COPY OF PRESCRIPTION DRUG MONITORING REPORT IN PATIENT IDA: Not Applicable Sepsis Event Note (ED) - Focused Exam Vital Signs: Vital Signs Temp Pulse Resp BP Pulse Ox 04/13/21 12:55 98.1 F 82 20 153/86 H 96 - My Orders Last 24 Hours: My Active Orders 04/13/21 13:04 Blood Culture x2 Reflex Set [OM.PC] Stat 04/13/21 13:05 CULTURE WOUND [RM] Stat Sodium Chloride 0.9% [Saline Flush] 10 ml FLUSH ASDIRECTED PRN Peripheral IV Insertion Adult [OM.PC] Stat 04/13/21 13:06 Peripheral IV Care [RC] . DIRECTED 04/13/21 13:15 CULTURE BLOOD [BC] Stat 04/13/21 13:20 CULTURE BLOOD [BC] Stat - Assessment/Plan Last 24 Hours: My Active Orders 04/13/21 13:04 Blood Culture x2 Reflex Set [OM.PC] Stat 04/13/21 13:05 CULTURE WOUND [RM] Stat Sodium Chloride 0.9% [Saline Flush] 10 ml FLUSH ASDIRECTED PRN Peripheral IV Insertion Adult [OM.PC] Stat 04/13/21 13:06 Peripheral IV Care [RC] . DIRECTED 04/13/21 13:15 CULTURE BLOOD [BC] Stat 04/13/21 13:20 CULTURE BLOOD [BC] Stat
[2021-04-13] MEDS ORDERED: LORazepam 2 MG/ML SDV IVPUSH ONE (13:36)
[2021-04-13 13:40] LABS: ANION GAP 15.4 mEq/L (7-13); CHLORIDE,CL 102 mmol/L (98-107); SODIUM,NA 139 mmol/L (136-145)
== END 2021-04-13 16:10 | disposition home or self-care (01) ==
LOC: DL.ED 10:48
DX: L03.113 Cellulitis of right upper limb (principal); L02.413 Cutaneous abscess of right upper limb; I48.91 Unspecified atrial fibrillation; Z72.0 Tobacco use
CPT/HCPCS: 10060; 36415; 80053; 83605; 85025; 86140; 87040; 96365; 96366; 96375; 99284; J1170; J2060; J2405; J3370; J7040

== ENCOUNTER 2022-06-21 12:20 | Emergency (ER) | payer MEDICAID ==
[2022-06-21] MEDS ORDERED: Doxycycline Monohydrate 100 MG Cap PO ONE ×2 (12:21→13:13)
[2022-06-21 12:44] VITALS: BP 144/118; PULSE 97
[2022-06-21] MEDS ORDERED: Mupirocin Oint 22 GM Tube TOP ONE (13:14)
[2022-06-21] MEDS ORDERED: Mupirocin Oint 22 GM Tube ONE (14:11)
[2022-06-21] MEDS ORDERED: Doxycycline Monohydrate 100 MG Cap ONE (14:11)
== END 2022-06-21 14:16 | disposition home or self-care (01) ==
LOC: DL.ED 12:20
DX: S80.211A Abrasion, right knee, initial encounter (principal); L08.9 Local infection of the skin and subcutaneous tissue, unspecified; L81.8 Other specified disorders of pigmentation; B34.9 Viral infection, unspecified; I48.91 Unspecified atrial fibrillation
CPT/HCPCS: 99283; A9270

== ENCOUNTER 2022-07-27 13:29 | Emergency (ER) | payer MEDICAID ==
[2022-07-27] MEDS ORDERED: Sulfamethoxazole/Trimethoprim 800-160 MG Tab PO ONE (13:30)
[2022-07-27] MEDS ORDERED: Lidocaine 2% with EPINEPHrine 1:200,000 20 ML SDV INJECT ONE (13:42)
[2022-07-27 13:45] VITALS: BP 147/86; PULSE 75
[2022-07-27] MEDS ORDERED: Sulfamethoxazole/Trimethoprim 800-160 MG Tab ONE (15:02)
== END 2022-07-27 15:11 | disposition home or self-care (01) ==
LOC: DL.ED 13:29
DX: S01.81XA Laceration without foreign body of other part of head, initial encounter (principal); I48.91 Unspecified atrial fibrillation; W00.0XXA Fall on same level due to ice and snow, initial encounter
CPT/HCPCS: 12013; 87070; 87077; 99282; A9270; 12002; J3490

== ENCOUNTER 2022-11-29 17:01 | Emergency (ER) | payer MEDICAID ==
[2022-11-29 17:14] VITALS: BP 147/96; PULSE 72
[2022-11-29] MEDS ORDERED: Ketorolac 30 MG/ML SDV IM ONE (18:17)
== END 2022-11-29 18:31 | disposition home or self-care (01) ==
LOC: DL.ED 17:01
DX: S63.501A Unspecified sprain of right wrist, initial encounter (principal); I48.91 Unspecified atrial fibrillation; F17.210 Nicotine dependence, cigarettes, uncomplicated; W20.8XXA Other cause of strike by thrown, projected or falling object, initial encounter; Y93.01 Activity, walking, marching and hiking
CPT/HCPCS: 73110-RT; 96372; 99282; 99283; J1885

== ENCOUNTER 2024-05-19 20:06 | Emergency (ER) | payer MEDICAID ==
[2024-05-19 20:33] VITALS: BP 132/87; PULSE 68
[2024-05-19] MEDS: Ketorolac 30 MG/ML SDV IM ONE (20:48)
[2024-05-19] MEDS: Clindamycin HCl 150 MG Cap PO ONE (20:49)
[2024-05-19] MEDS: Acetaminophen/HYDROcodone 325-5 MG Tab PO ONE (20:49)
== END 2024-05-19 20:56 | disposition home or self-care (01) ==
LOC: DL.ED 20:06
DX: K04.7 Periapical abscess without sinus (principal)
CPT/HCPCS: 96372; 99283; A9270; J1885

== ENCOUNTER 2024-06-27 12:16 | Emergency (ER) | payer MEDICAID ==
[2024-06-27] MEDS ORDERED: Sodium Chloride 0.9% 10 ML Syringe FLUSH PRN (12:25)
[2024-06-27 12:30] VITALS: BP 139/103; PULSE 96
[2024-06-27 12:44] LABS: BASOPHILS PERCENT AUTO 0.1 % (0.0-1.0); EOSINOPHILS PERCENT AUTO 2.3 % (1.0-3.0); HEMATOCRIT 42.8 % (37.0-47.0); HEMOGLOBIN 14.7 g/dL (12.0-16.0); LYMPHOCYTES PERCENT AUTO 27.4 % (20.5-50.1); MEAN CORPUSCULAR HEMOGLOBIN 31.2 pg (27.0-34.0); MEAN CORPUSCULAR HGB CONC 34.3 g/dL (33.0-35.0); MEAN CORPUSCULAR VOLUME 90.9 fL (80-100); MONOCYTES PERCENT AUTO 4.1 % (2-8); NEUTROPHILS PERCENT AUTO 66.1 % (42.2-75.2); PLATELET COUNT,PLT 305 10^3/uL (150-450); RED BLOOD CELL COUNT 4.71 10^6/uL (4.2-5.4); WHITE BLOOD CELL COUNT,WBC 8.6 10^3/uL (5.0-10.0)
[2024-06-27 13:13] LABS: A/G RATIO 1.2; ANION GAP 15.5 mEq/L (7-13); BUN/CREATININE RATIO 12.3 (No establ ref range); CREATININE 0.73 mg/dL (0.55-1.02); EST CRCL DRUG DOSING (CG) 88.23 mL/min; INR 0.9 (0.9-1.2); POTASSIUM,K 3.5 mmol/L (3.5-5.1); PROTEIN TOTAL,TP 7.4 g/dL (6.4-8.2); PROTHROMBIN TIME 9.3 SEC (9.0-12.0); PTT,PARTIAL THROMBOPLSTIN TIME 23.5 SEC (22.0-34.0); TSH ULTRASENSITIVE 0.64 uIU/mL (0.36-3.74)
== END 2024-06-27 14:10 | disposition home or self-care (01) ==
LOC: DL.ED 12:16
DX: I48.0 Paroxysmal atrial fibrillation (principal); Z90.89 Acquired absence of other organs; Z79.899 Other long term (current) drug therapy
CPT/HCPCS: 36415; 71045; 80053; 83880; 84443; 84484; 85025; 85610; 85730; 87428-QW; 93005; 99285

== ENCOUNTER 2024-09-06 05:48 | Emergency (ER) | payer MEDICAID ==
[2024-09-06 06:11] VITALS: BP 150/81; PULSE 53
== END 2024-09-06 06:31 | disposition home or self-care (01) ==
LOC: DL.ED 05:48
DX: J06.9 Acute upper respiratory infection, unspecified (principal); B97.89 Other viral agents as the cause of diseases classified elsewhere; F17.210 Nicotine dependence, cigarettes, uncomplicated; K21.9 Gastro-esophageal reflux disease without esophagitis; Z79.899 Other long term (current) drug therapy
CPT/HCPCS: 99284

== ENCOUNTER 2024-10-18 12:49 | Emergency (ER) | payer MEDICAID ==
[2024-10-18 12:57] VITALS: BP 154/79; PULSE 84
[2024-10-18] MEDS: Lidocaine 1% 5 ML VIAL INJECT ONE (14:15)
[2024-10-18] MEDS: Diphtheria,Pertussis(Acell),Tetanus Vaccine 0.5 ML Syringe IM ONE (14:51)
== END 2024-10-18 14:54 | disposition home or self-care (01) ==
LOC: DL.ED 12:49
DX: S61.412A Laceration without foreign body of left hand, initial encounter (principal); I48.91 Unspecified atrial fibrillation; K21.9 Gastro-esophageal reflux disease without esophagitis; Z23 Encounter for immunization; Z88.8 Allergy status to other drugs, medicaments and biological substances; Z79.01 Long term (current) use of anticoagulants; Z79.82 Long term (current) use of aspirin; X15.8XXA Contact with other hot household appliances, initial encounter
CPT/HCPCS: 12001; 90471; 90715; 99282; J2003

== ENCOUNTER 2025-02-11 14:46 | Emergency (ER) | payer SELFPAY ==
[2025-02-11] MEDS: Take Home: Amoxicillin/Clavulanate K 875-125 MG Tab, 6 Tab Pack PO ONE (15:31)
[2025-02-11 15:46] VITALS: BP 151/68; PULSE 68
== END 2025-02-11 15:40 | disposition home or self-care (01) ==
LOC: DL.ED 14:46
DX: S81.052A Open bite, left knee, initial encounter (principal); I48.91 Unspecified atrial fibrillation; K21.9 Gastro-esophageal reflux disease without esophagitis; Z79.01 Long term (current) use of anticoagulants; Z79.899 Other long term (current) drug therapy; W54.0XXA Bitten by dog, initial encounter
CPT/HCPCS: 99283; A9270

== ENCOUNTER 2025-06-03 13:28 | Emergency (ER) | payer MEDICAID ==
[2025-06-03 14:56] VITALS: BP 139/87; PULSE 86
== END 2025-06-03 14:53 | disposition home or self-care (01) ==
LOC: DL.ED 13:28
DX: S02.2XXA Fracture of nasal bones, initial encounter for closed fracture (principal); I48.91 Unspecified atrial fibrillation; K21.9 Gastro-esophageal reflux disease without esophagitis; F17.210 Nicotine dependence, cigarettes, uncomplicated; Z79.01 Long term (current) use of anticoagulants; Z79.899 Other long term (current) drug therapy; Z79.82 Long term (current) use of aspirin; W10.8XXA Fall (on) (from) other stairs and steps, initial encounter; Y93.89 Activity, other specified
CPT/HCPCS: 70150; 99284; A9270; 99283